=== PATIENT | female | born 1980 | race Hispanic/Latino ===

== ENCOUNTER 2016-10-20 08:02 | Day surgery (SDC) | payer OTHER ==
[~2016-10-20] VITALS: Ht 157.5 cm; Wt 54.9 kg
[2016-10-20] MEDS ORDERED: LR 1,000 ML IV ONE (08:15)
[2016-10-20 08:47] LABS: CONTROL LINE HCG INT CTR LINE PRESENT
[2016-10-20 09:02] LABS: BASO % 0.5 % (0.0-1.0); EOS # 0.1 K/mm3 (0.0-0.50); LARGE UNSTAINED CELL # 0.1 K/mm3 (0.0-0.4); LYMPH # 1.4 K/mm3 (1.5-4.5); LYMPH % 38.8 % (24.0-44.0); MEAN CORPUSCULAR HEMOGLOBIN 31.8 pg (27.0-33.0); MEAN CORPUSCULAR HGB CONC 34.6 g/dl (32.0-36.5); MEAN CORPUSCULAR VOLUME 91.7 fl (80.0-96.0); MONO # 0.2 K/mm3 (0.0-0.8); MONO % 6.3 % (0.0-5.0); NEUTROPHILS # 1.8 K/mm3 (1.8-7.7); NEUTROPHILS % 49.5 % (36.0-66.0); PLATELET COUNT, AUTOMATED 204 k/mm3 (150-450); RED CELL DISTRIBUTION WIDTH 12.2 % (11.5-14.5); WHITE BLOOD COUNT 3.7 K/mm3 (4.0-10.0)
[2016-10-20] MEDS ORDERED: KETOROLAC 60 MG/2 ML VIAL (J1885) As Ordered ONE (09:20)
[2016-10-20] MEDS ORDERED: PROPOFOL 200 MG/20 ML VIAL As Ordered ONE (09:20)
[2016-10-20] MEDS ORDERED: fentaNYL 100 MCG/2 ML INJECTION (J3010) As Ordered ONE ×2 (09:20→11:02)
[2016-10-20] MEDS ORDERED: dexameTHASONE 4 MG/ML 1ML VIAL (J1100) As Ordered ONE (09:20)
[2016-10-20] MEDS ORDERED: MIDAZOLAM INJ 2 MG/2 ML VIAL (J2250) As Ordered ONE (09:20)
[2016-10-20] MEDS ORDERED: ONDANSETRON 4MG/2ML VIAL (J2405) As Ordered ONE (09:20)
[2016-10-20] MEDS ORDERED: LIDOCAINE 2% INJ 100 MG/5 ML SDV (FOR ANES.) As Ordered ONE (09:20)
[2016-10-20] MEDS ORDERED: LIDOCAINE W/EPINEPHRINE 1% 20ML VIAL As Ordered ONE (09:51)
[2016-10-20] MEDS ORDERED: PHENYLephrine HCL 500 MCG/5 ML (100MCG/ML) SYRINGE (J2370) As Ordered ONE (10:22)
[2016-10-20] MEDS ORDERED: ePHEDrine SULFATE 25 MG/5 ML(5MG/ML) SYRINGE As Ordered ONE (10:30)
[2016-10-20] MEDS ORDERED: NORCO, ANEXSIA 5/325MG TABLET (HYDROcodone/ACETAMINOPHEN) As Ordered ONE (11:02)
[2016-10-20] MEDS ORDERED: ONDANSETRON 4MG/2ML VIAL (J2405) IV PRN (11:15)
[2016-10-20] MEDS ORDERED: MORPHINE 2 MG/ML 1ML SYRINGE IV PRN (11:15)
--- NOTE | 2016-10-20 12:41 | RO ---
DATE OF PROCEDURE: 10/20/2016 PREOPERATIVE DIAGNOSIS: Cervical dysplasia. POSTOPERATIVE DIAGNOSIS: Cervical dysplasia. PROCEDURE: Loop Electrosurgical Excisional Procedure SURGEON: Dr. Efraín Buckley ACCESS DATABASE DEVELOPER: None. ANESTHESIA: General, GROUP HOME MANAGER. INDICATION FOR SURGERY: The patient is a 36-year-old, (G) 0, with cervical dysplasia found on colposcopy with abnormal cytology who presents for excisional procedure after extensive counseling in the clinic. IV FLUIDS: 500 mL isotonic fluid. URINE OUTPUT: 50 mL in and out catheter. ESTIMATED BLOOD LOSS: Less than 5 mL. COMPLICATIONS: None. The risks, benefits, alternatives and indications are reviewed with the patient and informed consent was obtained. The patient was taken to the operating room and after anesthesia was completed, she was placed in a low lithotomy position After the patient was appropriately prepped and draped and a time out was performed, the sterile speculum was placed into the patient's vagina with complete visualization of the cervix. The cervix was then cleaned off. 1% lidocaine with epinephrine for a total of 10 mL was placed circumferentially around the cervix. Diluted acetic acid was then placed which demonstrated aceta whitening from approximately 4 to 8. Using the loop device, tissue was removed in two passes in two separate segments with tagging to be performed on sample 1 at 6 o'clock and sample 2 at 4 o'clock. At the completion of this, a Bovie cautery was utilized to provide hemostasis and cautery of the entire surgical area. Hemostasis was noted at the conclusion of this. Proper tagging of the tissue samples was noted. All instruments were removed from the patient's cervix after visualization demonstrated hemostasis. Sponge, lap and needle counts were correct times three. Antibiotics were not indicated. The patient was taken stable to the postanesthesia care unit (PACU). Greer Buckley OB-POND [facility] ANA
[2016-10-20 12:45] VITALS: BP 100/60
[2016-10-20] MEDS ORDERED: KETOROLAC 30 MG/ML VIAL (J1885) IV SCH (17:00)
== END 2016-10-20 13:05 | disposition home or self-care (01) ==
LOC: M SDC 08:02
PROVIDERS: ATTEND Student in an Organized Health Care Education/Training Program
DX: D06.9 Carcinoma in situ of cervix, unspecified (principal)
CPT/HCPCS: 36415; 57522; 84703; 85025; 86850; 86900; 86901; 88307; J1100; J1885; J2250; J2370; J2405; J3010

== ENCOUNTER → 2016-12-01 | Outpatient (CLI) | payer OTHER ==
--- NOTE | 2016-12-01 12:17 | REP ---
BILATERAL DIAGNOSTIC MAMMOGRAM WITH BILATERAL BREAST ULTRASOUND: Bilateral mammogram is performed in the MLO and CC projections. There are no prior studies for comparison. There is reportedly a palpable abnormality in the right breast just above the nipple at 12 -o'clock position. Another palpable abnormality is present at 9 -o'clock position in the left breast. These areas are marked on the skin with a triangular marker and additional spot compression views are obtained. The breast parenchyma is dense bilaterally limiting the sensitivity of a mammogram. At the 9 -o'clock position of the left breast, there is a smoothly marginated nodule approximately 1 cm in diameter, at the site of the reported palpable abnormality. No other mass is seen bilaterally and there is no architectural distortion. No clustered microcalcifications are seen. Real-time sonographic evaluation of the right breast performed in the region of the 12 -o'clock position where three is a reported palpable abnormality. There is dense fibroglandular tissue without a cystic or solid nodule. Sonographic evaluation of the left breast performed in the region of 9--o'clock position to the 10-o'clock positions at the site of the reported palpable abnormality. There is a 5 mm cyst at the 9 -o'clock position and a cyst containing a thin septation at 10 -o'clock position measuring 8 mm in diameter. There is another adjacent small cyst about 4 mm in diameter. There is surrounding dense fibroglandular tissue. IMPRESSION: ACR 2 benign. Dense breast parenchymal limits the sensitivity of the mammogram. Smoothly marginated nodule at 9 -o'clock position left breast at the site of the reported palpable abnormality represents a cyst by ultrasound and is benign. There is no other evidence of mass or clustered microcalcifications. There is no mammographic or sonographic evidence of a mass at the site of the reported palpable abnormality at 12 -o'clock position in the right breast. Clinical correlation and followup is recommended. BI-RADS/ACR category 2 mammogram. Benign finding(s). Routine annual screening mammography (for women over age 40). This mammogram was interpreted with the aid of an FDA-approved computer-aided detection system. A. Negative x-ray reports should not delay biopsy if a dominant or clinically suspicious mass is present. B. Four to eight percent of cancers are not identified by x-ray. C. Adenosis and dense breasts may obscure an underlying neoplasm. The patient states she/he had a clinical breast exam in November 2016. The patient letter being requested is M2. Signed by Gordo Maciel MD 12/01/2016 01:02 P
== END ==
LOC: M RAD 09:41
PROVIDERS: ATTEND Midwife
DX: N63.0 Unspecified lump in unspecified breast (principal)